=== PATIENT | female | born 1990 | race Caucasian/White ===

== ENCOUNTER 2018-06-18 09:40 | Inpatient (IN) | payer SELFPAY ==
--- NOTE | 2018-06-18 10:16 | PCM.LDHP ---
L&D History of Present Illness - General Date of Service: 06/18/18 Admit Problem/Dx: Admission Diagnosis/Problem Admission Diagnosis/Problem 06/18/18 10:10 Star is a 27-year-old 3 para 2001 white female with an ultrasound to determine KEV of 06/11/2018 with ultrasound being done on 10/27/2017. who is admitted to labor and delivery with active labor and late stage of labor. She is essentially completely dilated. Bag of fall is bulging. Does report leakage is some fluid. Patient has received care in [place] up until 3 weeks ago. We do not have on her at this time. Her history is received from her and her . Now is living with her boyfriend in [place], [place]. They planned a home but became scared when doing progresses quickly as they were expecting. To do a water delivery. She has reported good activity. D she denies any easy problems. Specifically she reports her group B strep screen to be negative and her diabetic screen to be negative. She's had 2 other vaginal deliveries in the 6-7 pound range. document was obtained. Obstetric history includes 2 vaginal deliveries. Her first delivery was on 11/11/2008 at 39-3/7 weeks?7 lbs. 8 oz. male via spontaneous vaginal delivery?epidural for pain control. Second delivery was on 10/05/2014 at 39-0/7 weeks?8 lbs. 7 oz. baby male , epidural. No problems with or delivery. This request will history of herpes simplex virus. Laboratory testing and shows blood to be A+ with a negative antibody screen. First laboratory testing showed hematoma 14.1 g/dL. Platelets are 375,000. Rubella titer showed immunity. RPR is nonreactive. Hepatitis B surface antigen and hepatitis C assays were both negative. HIV assay was negative. Urinalysis was unremarkable. GC and chlamydia tests were both negative. Second trimester labs showed a 1 hour glucose times test of 97 mg per deciliter-normal. The platelet count second trimesters 336,000. Hemoglobin was 11.6 g or deciliter. Group B strep screen was negative. Review of systems: In general patient has no complaints. Skin: Negative Lungs: No infectious symptoms or shortness of breath Cardiovascular: No chest pain or exercise intolerance Breasts: No lumps, changes in size, pain, dimpling, discharge or axillary or supraclavicular concerns. GI: Negative : Negative. No evidence of HSV infection at the time of delivery. Musculoskeletal: Negative Neurological: Negative Past medical history: 1. Vaginal delivery 2 2. Fracture left lower leg with pain. Details not known. Past surgical history: 1. Pinning of left lower leg. 2. Morton tooth extraction Family history: Mother is secondary to breast cancer-diagnosed at 50 years of age. Father is alive and well. Apparently had some adult-onset diabetes but with diet control and weight loss he is corrected this. Siblings are alive and healthy. She denies any , anesthesia, bleeding, blood clotting problems in the family. Some alcohol abuse in mother and maternal grandfather diabetes in paternal grandmother and paternal grandfather. Both sons with epidermolysis bullosa. Social history patient is . She lives with her in [place], [place]. Has a history of smoking but stopped greater than 1 year ago. Physical exam: In general patient is well-developed, overweight white female in moderate distress secondary to contraction discomfort. HEENT, neck and back within normal Lungs are clear with good breath sounds in all lung castro. Heart rate is increased secondary to labor. Abdomen is protuberant unlikely consistent with term baby in vertex presentation by Barrera maneuvers. Cervix is nearly complete with an anterior lip only. Bulging bag of fall noted. Extremities neurologic exam grossly within normal limits. 06/18/18 11:25 - Related Data Allergies/Adverse Reactions: Allergies Allergy/AdvReac Type Severity Reaction Status Date / Time No Known Allergies Allergy Verified 06/18/18 10:17 H&P Review of Systems - Review of Systems: Review Of Systems: See Below L&D Exam - Exam Exam: See Below Problem List Initiated/Reviewed/Updated: Yes Assessment/Plan Comment:: 1. 41-0/7 week intrauterine , active labor with near complete cervical dilation upon admission to labor and delivery. Membranes intact. No records upon initial evaluation in labor and delivery 2. Patient's history-group B strep screen negative. Diabetic screening test negative. 3. Patient desires natural delivery 4. Patient plans to breast-feed. 5. Questionable history of genital HSV. No active lesions noted on exam at the time of delivery. Plan: 1. Anticipate normal spontaneous vaginal delivery 2. Obtain records from her primary care balancing machine set up worker. 3. Dr. Schwab present for delivery. 4. Support breast-feeding decision.
[2018-06-18] MEDS ORDERED: Lanolin 100% Cream 7 GM Tube TOP PRN (11:13)
[2018-06-18] MEDS ORDERED: Docusate Sodium 100 MG Cap PO PRN (11:13)
[2018-06-18] MEDS ORDERED: Benzocaine/Menthol 20%-0.5% Spray 56 GM Canister TOP PRN (11:13)
[2018-06-18] MEDS ORDERED: Acetaminophen 325 MG Tab PO PRN (11:13)
[2018-06-18] MEDS ORDERED: Witch Hazel Medicated Pads 100/Jar TOP PRN (11:13)
--- NOTE | 2018-06-18 11:24 | PCM.SN ---
- Free Text/Narrative Note: Delivery note: Star is a 27-year-old 3 now para 3003 female who was admitted to labor and delivery at 41-0/7 weeks gestational age with an KEV of 06/11/2018. The patient came in in advanced labor with just an anterior cervical lip. Bag fall was intact the patient reported some loss of vaginal fluid. She reported starting labor sometime yesterday. She desired and had planned a home but she and her got scared at the last minute because it was taking Zoloft and decided to attempt to get to the hospital and drove from their home in [place], [place] to the hospital. She had plan for an underwater delivery. She wanted a natural labor without pain medications. She delivered spontaneously after a period of pushing. She was very noncompliant with recommendations for pushing. She was writhing with pain and somewhat out of control. She delivered a viable, singletary, female infant at 1058 hrs. on 06/18/2018. Patient did not push well after delivery of the baby's head but there was no shoulder dystocia noted. Baby delivered in an intact bed because of patient's writhing around the bed was left intact for her safety. There was a loose nuchal cord 1 which was reduced over the baby's head. The patient had no evidence of laceration. Baby had Apgars of 8 and 9. Weight was 4050 g (8 pounds 14.9 ounces). Length was 21.5 inches. Baby was used on mom's abdomen initially, cord was clamped 2 and cut by the baby's father. Baby was taken to the warmer to evaluate be evaluated by Dr. Schwab. Umbilical cord had 3 vessels. Cord blood was obtained. Placenta delivered spontaneously in a Reynolds presentation, appeared intact and complete was discarded per patient desire.'s obtained. Segment of cord was obtained/secured for possible drug evaluation as determined by the almond sorter. Pitocin was administered after delivery the baby. The patient had a 500 mL blood loss right after delivery and Methergine 0.2 mg IM was given. After this uterus contracted well and no significant bleeding was noted from that point on. Patient plans to breast-feed. Condition: Good
[2018-06-18] MEDS: Ibuprofen 600 MG Tab PO PRN ×2 (11:28→20:18)
[2018-06-18] MEDS ORDERED: Methylergonovine 0.2 MG/1 ML Amp IM PRN (11:29)
[2018-06-18] MEDS ORDERED: Oxytocin/Lactated Ringers 10 UNIT/1,000 ML BAG IV SCH (11:45)
[2018-06-18] MEDS ORDERED: Lactated Ringers 1,000 ML IV SCH (11:45)
--- NOTE | 2018-06-19 07:27 | PCM.DCSUM1 ---
Discharge Summary - Hospital Course Free Text/Narrative:: Star is a 27-year-old 3 now para 3003 female who was admitted to labor and delivery at 41-0/7 weeks gestational age with an KEV of 06/11/2018. The patient came in in advanced labor with just an anterior cervical lip. Bag fall was intact the patient reported some loss of vaginal fluid. She reported starting labor sometime yesterday. She desired and had planned a home but she and her got scared at the last minute because it was taking Zoloft and decided to attempt to get to the hospital and drove from their home in [place], [place] to the hospital. She had plan for an underwater delivery. She wanted a natural labor without pain medications. She delivered spontaneously after a period of pushing. She was very noncompliant with recommendations for pushing. She was writhing with pain and somewhat out of control. She delivered a viable, singletary, female infant at 1058 hrs. on 06/18/2018. Patient did not push well after delivery of the baby's head but there was no shoulder dystocia noted. Baby delivered in an intact bed because of patient's writhing around the bed was left intact for her safety. There was a loose nuchal cord 1 which was reduced over the baby's head. The patient had no evidence of laceration. Baby had Apgars of 8 and 9. Weight was 4050 g (8 pounds 14.9 ounces). Length was 21.5 inches. Baby was used on mom's abdomen initially, cord was clamped 2 and cut by the baby's father. Baby was taken to the warmer to evaluate be evaluated by Dr. Schwab. Umbilical cord had 3 vessels. Cord blood was obtained. Placenta delivered spontaneously in a Reynolds presentation, appeared intact and complete was discarded per patient desire.'s obtained. Segment of cord was obtained/secured for possible drug evaluation as determined by the deputy head. Pitocin was administered after delivery the baby. The patient had a 500 mL blood loss right after delivery and Methergine 0.2 mg IM was given. After this uterus contracted well and no significant bleeding was noted from that point on. patient is done well. She has minimal lochia, voiding well, ambulate without concerns. She is desiring discharge at 24 hours postdelivery. Patient plans to breast-feed. Condition: Good Diagnosis: Stroke: No - Discharge Data Discharge Date: 06/19/18 Discharge Disposition: Home, Self-Care 01 Condition: Good - Patient Instructions Diet: Regular Diet as Tolerated (Nursing diet was increased calories and calcium is recommended) Activity: As Tolerated (No intercourse or tampons until bleeding resolves) Driving: Do Not Drive (2 days) Showering/Bathing: May Shower (May shower or take a bath) Notify Provider of: Fever, Increased Pain, Swelling and Redness, Nausea and/or Vomiting - Discharge Plan Home Medications: Home Meds Acetaminophen [Tylenol] 650 mg PO Q4H PRN tablet 06/19/18 [Rx] Ibuprofen [Motrin] 600 mg PO Q4H PRN tablet 06/19/18 [Rx] Referrals: Seferino Fiore MD [Physician] - (Return to clinicDr. Fiore2 weeks.) - Discharge Summary/Plan Comment DC Time >30 min.: No Discharge Summary/Plan Comment: Discharge instructions: 1. Discharge home 2. Diet, activity and follow-up discussed with patient. Recommend nursing diet with increased calories and calcium. 3. Precautions given concern increased pain, bleeding, temperature, signs/ symptoms of DVT/PE. 4. Medications per home medication was printed, discussed with and given to the patient. 5. Return to clinic-Dr. Fiore[facility] in 2 weeks. Diagnosis: Term -delivered Condition: Good - Patient Data Vitals - Most Recent: Last Vital Signs Temp 36.5 C 06/19/18 02:55 Pulse 90 06/19/18 02:55 Resp 14 06/19/18 02:55 BP 117/60 06/19/18 02:55 Pulse Ox 94 L 06/19/18 02:55 Weight - Most Recent: 109.316 kg I&O - Last 24 hours: Intake & Output 06/18/18 06/19/18 06/19/18 22:59 06:59 14:59 Intake Total 1550 Balance 1550 Lab Results - Last 24 hrs: Laboratory Results - last 24 hr 06/18/18 06/18/18 06/19/18 Range/Units 10:15 10:15 06:07 WBC 11.66 H (3.98-10.04) K/mm3 RBC 3.96 L (3.98-5.22) M/mm3 Hgb 10.7 L (11.2-15.7) gm/L Hct 33.2 L (34.1-44.9) % MCV 83.8 (79.4-94.8) fl MCH 27.0 (25.6-32.2) pg MCHC 32.2 (32.2-35.5) g/dl RDW Std Deviation 44.0 (36.4-46.3) fL Plt Count 244 (182-369) K/mm3 MPV 8.9 L (9.4-12.3) fl Neut % (Auto) 67.0 (34.0-71.1) % Lymph % (Auto) 20.0 (19.3-51.7) % Prentiss % (Auto) 10.4 (4.7-12.5) % Eos % (Auto) 2.0 (0.7-5.8) Baso % (Auto) 0.3 (0.1-1.2) % Neut # (Auto) 7.83 H (1.56-6.13) K/mm3 Lymph # (Auto) 2.33 (1.18-3.74) K/mm3 Prentiss # (Auto) 1.21 H (0.24-0.36) K/mm3 Eos # (Auto) 0.23 (0.04-0.36) K/mm3 Baso # (Auto) 0.03 (0.01-0.08) K/mm3 Urine Color Yellow (Yellow) Urine Appearance Cloudy H (Clear) Urine pH 8.5 H (5.0-8.0) Ur Specific Rudolph 1.025 (1.005-1.030) Urine Protein 1+ H (Negative) Urine Glucose (UA) Negative (Negative) Urine Ketones Negative (Negative) Urine Occult Blood 3+ H (Negative) Urine Nitrite Negative (Negative) Urine Bilirubin Negative (Negative) Urine Urobilinogen 0.2 (0.2-1.0) Ur Leukocyte Esterase 1+ H (Negative) Urine RBC 40-50 H (0-5) /hpf Urine WBC 10-20 H (0-5) /hpf Ur Epithelial Cells 5-10 H (0-5) /hpf Amorphous Sediment Moderate H (NOT SEEN) /hpf Urine Bacteria Moderate H (FEW) /hpf Urine Mucus Not seen (FEW) /hpf Urine Opiates Screen Negative (FCWTZD=568) Ur Buprenorphine Scrn Negative (CUTOFF=10) Ur Oxycodone Screen Negative (LLY0AQ=660) Urine Methadone Screen Negative (HBGDFF=962) Ur Propoxyphene Screen Negative (BOEZGK=134) Ur Barbiturates Screen Negative (VTFOME=549) Ur Tricyclics Screen Negative (VJKKYD=904) Ur Phencyclidine Scrn Negative (CUTOFF=25) Ur Amphetamine Screen Negative (AYAIDM=371) U Methamphetamines Scrn Negative (ARRUHQ=645) U Benzodiazepines Scrn Negative (GXBVYC=476) U Cocaine Metab Screen Negative (HNQCSJ=657) U Marijuana (THC) Screen Negative (CUTOFF=50) Med Orders - Current: Current Medications Acetaminophen (Tylenol) 650 mg PO Q4H PRN PRN Reason: mild pain or fever Benzocaine/Menthol (Dermoplast Pain Relief [place]) 0 gm TOP ASDIRECTED PRN PRN Reason: Perineal Comfort Measure Docusate Sodium (Colace) 100 mg PO BID PRN PRN Reason: Constipation Emollient Ointment (Lansinoh Hpa) 0 gm TOP ASDIRECTED PRN PRN Reason: Sore Nipples Lactated Ringer's (Ringers, Lactated) 1,000 mls @ 100 mls/hr IV ASDIRECTED [facility] Last Admin: 06/18/18 10:00 Dose: 100 mls/hr Oxytocin/Lactated Ringer's (Pitocin In Lr 10 Units/1,000 Ml) 10 unit in 1,000 mls @ 500 mls/hr IV ASDIRECTED [facility]; Protocol Last Admin: 06/18/18 11:00 Dose: 500 mls/hr Ibuprofen (Motrin) 600 mg PO Q4H PRN PRN Reason: Mild pain or fever Last Admin: 06/18/18 20:18 Dose: 600 mg Methylergonovine Maleate (Methergine) 0.2 mg IM Q4H PRN PRN Reason: Bleeding Last Admin: 06/18/18 11:34 Dose: 0.2 mg Witch Clary (Tucks) 1 pad TOP ASDIRECTED PRN PRN Reason: Hemorrhoid pain
[2018-06-19] MEDS: Ibuprofen 600 MG Tab PO PRN (09:03)
== END 2018-06-19 14:26 | disposition home or self-care (01) | DRG 806 ==
LOC: JD.OBCHECK 09:40 → JD.OB 09:52 → OBSVTOIN 10:59 → JD.OB 10:59
PROVIDERS: ADMIT Obstetrics & Gynecology; ATTEND Obstetrics & Gynecology
PROC: 6A550ZT Pheresis of Cord Blood Stem Cells, Single (ICD-10-PCS; principal; 2018-06-18)
PROC: 10E0XZZ Delivery of Products of Conception, External Approach (ICD-10-PCS; principal; 2018-06-18)
DX: O48.0 Post-term pregnancy (principal); O98.32 Other infections with a predominantly sexual mode of transmission complicating childbirth; Z37.0 Single live birth; O69.81X0 Labor and delivery complicated by cord around neck, without compression, not applicable or unspecified; A60.00 Herpesviral infection of urogenital system, unspecified; Z3A.41 41 weeks gestation of pregnancy; Z91.19 Patient's noncompliance with other medical treatment and regimen; Z79.899 Other long term (current) drug therapy
CPT/HCPCS: 36415; 59409; 80306; 81001; 85025; A9270-GY; J2210; J2590; J7120